=== PATIENT | male | born 1995 | race Caucasian/White ===

== ENCOUNTER 2019-05-17 20:02 | Emergency (ER) | payer OTHER ==
[~2019-05-17] VITALS: Ht 170.2 cm; Wt 59.0 kg
[2019-05-17 20:06] VITALS: BP 123/58
[2019-05-17] MEDS ORDERED: NORFLEX100 MG PO (20:32)
[2019-05-17] MEDS ORDERED: NAPROSYN500 MG PO (20:32)
== END 2019-05-17 20:48 | disposition home or self-care (01) ==
LOC: ER 20:02
DX: S39.012A Strain of muscle, fascia and tendon of lower back, initial encounter (principal); M70.88 Other soft tissue disorders related to use, overuse and pressure other site; X58.XXXA Exposure to other specified factors, initial encounter; Y93.89 Activity, other specified; Y92.89 Other specified places as the place of occurrence of the external cause; Y99.8 Other external cause status